=== PATIENT | male | born 1990 | race Caucasian/White ===

== ENCOUNTER 2021-01-30 11:20 | Observation (INO) | payer BC, SELFPAY ==
[2021-01-30 11:34] VITALS: BP 133/87; PULSE 68; RESP 18; TEMP 36.5; O2SAT 97; BMI 21.7
--- NOTE | 2021-01-30 11:34 | PC.NURSE ---
Pt arrived to the floor at this time.
[2021-01-30 12:31] LABS: Chloride 91 mmol/L (98-107); Sodium 128 mmol/L (136-145)
[2021-01-30 12:32] LABS: Potassium 4.5 mmoL/L (3.5-5.1)
[2021-01-30 12:34] LABS: Alanine Aminotransferase 48 U/L (12-78); Alkaline Phosphatase 110 U/L (38-126); Anion Gap 17.5 mEq/L (5-15); Aspartate Amino Transferase 44 U/L (17-59); Bilirubin,Total 0.8 mg/dl (0.2-1.3); Blood Urea Nitrogen 28 mg/dl (9-20); Carbon Dioxide 24 mmol/L (22.0-30.0); Creatinine Clearance Estimated 138 mL/min (50-200); Estimated Glomerular Filt Rate 99 ml/min (>60); GFR (African American) 120 ML/MIN (>60); Phosphorous 4.1 mg/dl (2.5-4.5)
[2021-01-30 12:35] LABS: Albumin Level 4.7 g/dl (3.5-5.0); Albumin/Globulin Ratio 1.6 (1.1-1.8); Calcium 9.8 mg/dl (8.4-10.2); Globulin 2.9 g/dL (1.3-3.2); Total Protein,Serum 7.6 g/dl (6.3-8.2)
[2021-01-30 12:39] LABS: Glucose 622 mg/dl (74-100)
[2021-01-30 12:55] LABS: Acetone, Serum (Rapid) Small (None Detect)
--- NOTE | 2021-01-30 12:58 | HMH.PHAINT ---
MEDICATION RECONCILIATION COMPLETED ON PATIENT USING EXTERNAL FILL HISTORY FROM PHARMACY. -MEHRDAD REMY, [place]
--- NOTE | 2021-01-30 12:59 | P.CONPHA_ITS ---
[facility] Pharmacy VTE Monitoring - Patient Demographics Admission date: 01/30/21 Report Date: 01/30/21 Time: 12:59 Allergies/Adverse Reactions: Patient Allergies No Known Allergies Allergy (Verified 01/30/21 11:45) Height: 1.93 m Weight: 81.193 kg - VTE Risk Labs: VTE Related Lab Results BUN 28 mg/dl (9-20) H 01/30/21 11:50 Creatinine 0.90 mg/dl (0.66-1.25) 01/30/21 11:50 Estimated Creat Clear 138 mL/min (50-200) 01/30/21 11:50 - Prophylaxis VTE Prophylaxis Ordered?: Yes Types of VTE Prophylaxis: TEDS Knee High Location of Applied Device: Bilateral Lower Extremeties
[2021-01-30 13:07] LABS: Thyroid Stimulating Hormone 5.56 uIU/mL (0.465-4.68)
[2021-01-30 13:37] LABS: Hemoglobin A1C > 14.0 % (4.0-6.0)
--- NOTE | 2021-01-30 14:06 | HMH.ACPN2 ---
Internal Medicine - PN: Subj *Date: 01/30/21 *Time: 14:06 Interval history: Saw patient in the office this morning. He had complaints of weight loss, polyuria and polydipsia. Blood sugar and A1c readings were too high to read in the office. He had 2+ ketones in his urine. Exam Vital signs and Labs for Last 24 Hours: Temp Pulse Resp BP Pulse Ox 97.7 F 68 18 133/87 97 01/30/21 11:34 01/30/21 11:34 01/30/21 11:34 01/30/21 11:34 01/30/21 11:34 Laboratory Results - last 24 hr 01/30/21 11:50: Sodium 128 L, Potassium 4.5, Chloride 91 L, Carbon Dioxide 24, Anion Gap 17.5 H, BUN 28 H, Creatinine 0.90, Estimated Creat Clear 138, Estimated GFR 99, Est GFR ( Amer) 120, Glucose 622 H*, Calcium 9.8, Phosphorus 4.1, Magnesium 2.0, Total Bilirubin 0.8, AST 44, ALT 48, Alkaline Phosphatase 110, Total Protein 7.6, Albumin 4.7, Globulin 2.9, Albumin/Globulin Ratio 1.6, TSH 5.56 H 01/30/21 11:50: Hemoglobin A1c > 14.0 H 01/30/21 11:50: Acetone Level Small I & O for Last 24 hours: Intake & Output 01/27/21 01/28/21 01/29/21 01/30/21 23:59 23:59 23:59 23:59 Intake Total 360 / 360 Balance 360 / 360 Weight 179 lb - Constitutional no acute distress - *Routine HEENT Exam Head: Present: normocephalic Eye: Present: EOMI, PERRL ENT: Present: mucous membranes moist - *Routine Neck Exam Present: supple. Absent: lymphadenopathy - *Routine Respiratory Exam Present: CTA bilaterally - *Routine Cardiovascular Exam Present: RRR - *Routine Abdominal Exam Present: soft, normoactive bowel sounds. Absent: tenderness - *Routine Extremities Exam Absent: cyanosis, clubbing, edema - *Routine Skin Exam Present: warm. Absent: rash - *Routine Neurological Exam Present: alert, oriented X3 Assessment and Plan (1) Hyperglycemia Status: Acute Category: Medical Code(s): R73.9 - Hyperglycemia, unspecified (2) Polydipsia Status: Acute Category: Medical Code(s): R63.1 - Polydipsia (3) Polyuria Status: Acute Category: Medical Code(s): R35.8 - Other polyuria (4) Weight loss Status: Acute Category: Medical Code(s): R63.4 - Abnormal weight loss - Assessment and plan all Dx Assessment and Plan for all problems:: Patient admitted with newly diagnosed diabetes. Will start IVF and insulin and await testing to determine if he is type 1 or 2. See orders, H&P to follow.
[2021-01-30 14:52] LABS: POC Glucose,Bedside 379 (70-110)
[2021-01-30 15:14] VITALS: BP 142/71; PULSE 73; RESP 19; TEMP 37.1; O2SAT 98
--- NOTE | 2021-01-30 16:33 | HMH.HP ---
*Admission Date: 01/30/21 <Neli Desai 01/30/21 16:51> *Chief complaint: Weight loss with extreme thirst and frequent urination <Neli Desai 01/30/21 16:51> *History of present illness: Mr. Sherwood is a 30-year-old white male with a history of celiac disease who presented to the office of [facility] this morning complaining of weight loss, polyuria and polydipsia. Blood sugars and A1c were too high to be read in the office. He was noted to have 2+ ketones in his urine. Thus he was admitted to [facility] with a new diagnosis of diabetes. After admission to the hospital A1c was noted to be >14+ with a blood sugar of 622. Sodium was low at 128 potassium was 4.5. He had a small level of acetone in his blood. He was started on fluids for dehydration and was to be given insulin as ordered. With this visit at [facility] patient feels extremely tired. He just wants to sleep. His thirst is somewhat better since being started on the IV fluids. He denies chest pain and shortness of breath. He denies nausea. <Neli Desai 01/30/21 16:51> [facility] History Medical History: Reports:: Gastroesophageal Reflux Disease(GERD) <Neli Desai 01/30/21 16:51> *Have you ever received a pneumonia vaccine?: No <Neli Desai 01/30/21 16:51> *Have you received a flu vaccine this season?: No <Neli Desai 01/30/21 16:51> Other Medical History: Reports: Sinus Problems <Neli Desai 01/30/21 16:51> Other Surgeries: Yes: No Previous Surgery <eNli Desai 01/30/21 16:51> - *Social History Last grade of school completed: High school graduate <Neli Desai 01/30/21 16:51> Smoking Status: Never smoker <Neli Desai 01/30/21 16:51> Alcohol Intake: never <Neli Desai 01/30/21 16:51> *Occupational Status:: employed <Neli Desai 01/30/21 16:51> Housing: house <Neli Desai 01/30/21 16:51> Household Members: family <Neli Desai 01/30/21 16:51> *Travel in the last 8 weeks: None <Neli Desai 01/30/21 16:51> Family Hx:: Cancer, Coronary Artery Disease, Diabetes, Stroke, Substance abuse, Alcoholism, Mental illness <Neli Desai 01/30/21 16:51> Review of Systems - Constitutional Reports fatigue, Reports lack of energy, Reports weight loss, Denies fever(s) <Neli Desai 01/30/21 16:51> - Eyes Reports change in vision <Neli Desai 01/30/21 16:51> - ENT Reports dry mouth, Reports nasal obstruction, Denies ear pain, Denies sore throat <Neli Desai 01/30/21 16:51> - *Cardiovascular Denies chest pain, Denies shortness of breath, Denies leg swelling, Denies rapid, pounding, or irregular heartbeat <Neli Desai 01/30/21 16:51> - *Respiratory Denies chest congestion, Denies cough, Denies shortness of breath <Neli Desai 01/30/21 16:51> - *Gastrointestinal Reports constipation, Reports heartburn, Denies abdominal pain, Denies belching, Denies difficulty swallowing, Denies nausea, Denies vomiting <Neli Desai 01/30/21 16:51> - *Genitourinary Reports urinary frequency <Neli Desai 01/30/21 16:51> - *Musculoskeletal Denies abnormal walking, Denies joint pain <Shannan Desaihy 01/30/21 16:51> - *Neurologic Denies abnormal walking, Denies abnormal speech, Denies frequent falls, Denies seizure-like activity <Neli Desai 01/30/21 16:51> Meds Home Medications Medication Instructions Recorded Confirmed Type Megestrol Acetate 5 ml PO DAILY 01/30/21 01/30/21 History <Aniket Lamas 01/31/21 07:48> Allergies Allergy/AdvReac Type Severity Reaction Status Date / Time No Known Allergies Allergy Verified 01/30/21 11:45 <Aniket Lamas 01/31/21 07:48> Exam Vital signs and Labs for Last 24 Hours: Temp Pulse Resp BP Pulse Ox 98.2 F 58 L 16 138/81 97 01/31/21 03:31 01/31/21 03:31 01/31/21 03:31 01/31/21 03:31 01/31/21 03:31 Laboratory Results - last 24 hr 01/30/21 11:50: Sodium 128 L, Potassium 4.5, Chl
[2021-01-30 17:18] LABS: POC Glucose,Bedside 274 (70-110)
[2021-01-30 19:41] VITALS: BP 126/68; PULSE 74; RESP 16; TEMP 36.9; O2SAT 94
[2021-01-30 22:32] LABS: POC Glucose,Bedside 237 (70-110)
[2021-01-31 03:31] VITALS: BP 138/81; PULSE 58; RESP 16; TEMP 36.8; O2SAT 97
--- NOTE | 2021-01-31 04:03 | PC.NURSE ---
Pt has slept at intervals this shift. No complaints stated. Diabetes education provided to pt. Pt demonstrated well. He checked his own glucose and gave his own insulin, humalog under this nurses supervision. Medication administered per nov. VSS. Lungs are CTA. BS active. No other concerns. Will continue to monitor.
[2021-01-31 05:05] VITALS: BMI 22.4
[2021-01-31 06:06] LABS: POC Glucose,Bedside 247 (70-110)
[2021-01-31 06:57] LABS: Basophils # 0.1 K/mm3 (0-0.2); Basophils % 0.5 % (0.1-2.0); Eosinophils # 0.1 K/mm3 (0.0-0.4); Eosinophils % 1.6 % (0.1-12.0); Hematocrit 40.4 % (42.0-52.0); Hemoglobin 14.6 g/dL (14.1-18.0); Lymphocytes # 3.2 K/mm3 (0.7-4.5); Lymphocytes % 37.7 % (10-50); Mean Corpuscular HGB Conc 36.1 g/dL (31.8-35.4); Mean Corpuscular Hemoglobin 28.6 pg (27.0-31.2); Mean Corpuscular Volume 79.3 fl (80-94); Mean Platelet Volume 8.2 fl (7.4-10.4); Monocytes # 0.5 K/mm3 (0.1-1.0); Monocytes % 5.6 % (1.7-9.3); Neutrophils # 4.6 K/mm3 (1.8-7.8); Neutrophils % 54.6 % (37.0-80.0); Platelet Count 216 K/mm3 (142-424); Red Blood Count 5.09 M/mm3 (4.60-6.20); Red Cell Distribution Width 13.3 % (11.5-17.5); White Blood Count 8.5 K/mm3 (4.8-10.8)
[2021-01-31 07:11] LABS: Acetone, Serum (Rapid) None Detected (None Detect); Anion Gap 8.5 mEq/L (5-15); Blood Urea Nitrogen 18 mg/dl (9-20); Carbon Dioxide 24 mmol/L (22.0-30.0); Chloride 105 mmol/L (98-107); Creatinine Clearance Estimated 182 mL/min (50-200); Estimated Glomerular Filt Rate 132 ml/min (>60); GFR (African American) 160 ML/MIN (>60); Glucose 259 mg/dl (74-100); Potassium 3.5 mmoL/L (3.5-5.1); Sodium 134 mmol/L (136-145)
[2021-01-31 07:51] LABS: Calcium 7.9 mg/dl (8.4-10.2)
[2021-01-31 08:00] VITALS: BP 131/75; PULSE 73; RESP 18; TEMP 36.8; O2SAT 99
--- NOTE | 2021-01-31 08:11 | HMH.ACPN2 ---
<Rose Cerna - Last Filed: 01/31/21 08:11> Internal Medicine - PN: Subj *Date: 01/31/21 *Time: 08:11 Interval history: Patient states he feels much better today. He slept good for the first time in weeks. He no longer has a feeling of excessive thirst. His glucose has improved. He denies any pain. Exam Vital signs and Labs for Last 24 Hours: Temp Pulse Resp BP Pulse Ox 98.3 F 73 18 131/75 99 01/31/21 08:00 01/31/21 08:00 01/31/21 08:00 01/31/21 08:00 01/31/21 08:00 Laboratory Results - last 24 hr 01/30/21 11:50: Sodium 128 L, Potassium 4.5, Chloride 91 L, Carbon Dioxide 24, Anion Gap 17.5 H, BUN 28 H, Creatinine 0.90, Estimated Creat Clear 138, Estimated GFR 99, Est GFR ( Amer) 120, Glucose 622 H*, Calcium 9.8, Phosphorus 4.1, Magnesium 2.0, Total Bilirubin 0.8, AST 44, ALT 48, Alkaline Phosphatase 110, Total Protein 7.6, Albumin 4.7, Globulin 2.9, Albumin/Globulin Ratio 1.6, TSH 5.56 H 01/30/21 11:50: Hemoglobin A1c > 14.0 H 01/30/21 11:50: Acetone Level Small 01/30/21 14:44: POC Glucose 379 H* 01/30/21 16:58: POC Glucose 274 H 01/30/21 22:14: POC Glucose 237 H 01/31/21 05:56: POC Glucose 247 H 01/31/21 06:40: WBC 8.5, RBC 5.09, Hgb 14.6, Hct 40.4 L, MCV 79.3 L, MCH 28.6, MCHC 36.1 H, RDW 13.3, Plt Count 216, MPV 8.2, Neut % (Auto) 54.6, Lymph % (Auto) 37.7, Coal % (Auto) 5.6, Eos % (Auto) 1.6, Baso % (Auto) 0.5, Neut # (Auto) 4.6, Lymph # (Auto) 3.2, Coal # (Auto) 0.5, Eos # (Auto) 0.1, Baso # (Auto) 0.1 01/31/21 06:40: Sodium 134 L, Potassium 3.5 D, Chloride 105, Carbon Dioxide 24, Anion Gap 8.5, BUN 18 D, Creatinine 0.70 D, Estimated Creat Clear 182, Estimated GFR 132, Est GFR ( Amer) 160 D, Glucose 259 H D, Calcium 7.9 L D 01/31/21 06:40: Acetone Level None detected I & O for Last 24 hours: Intake & Output 01/28/21 01/29/21 01/30/21 01/31/21 11:59 11:59 11:59 11:59 Intake Total 2348 / 2348 Balance 2348 / 2348 Weight 179 lb 184 lb Microbiology Reports for the Last 24 Hours: Microbiology 01/30/21 11:57 Nasopharyngeal Coronavirus COVID-19 PCR - Final - Constitutional no acute distress - *Routine Respiratory Exam Present: CTA bilaterally - *Routine Cardiovascular Exam Present: RRR - *Routine Abdominal Exam Present: soft, normoactive bowel sounds. Absent: tenderness - *Routine Extremities Exam Absent: cyanosis, clubbing, edema - *Routine Skin Exam Present: warm. Absent: rash - *Routine Neurological Exam Present: alert, oriented X3 Assessment and Plan (1) Hyperglycemia Status: Acute Category: Medical Code(s): R73.9 - Hyperglycemia, unspecified (2) Polydipsia Status: Acute Category: Medical Code(s): R63.1 - Polydipsia (3) Polyuria Status: Acute Category: Medical Code(s): R35.8 - Other polyuria (4) Weight loss Status: Acute Category: Medical Code(s): R63.4 - Abnormal weight loss - Assessment and plan all Dx Assessment and Plan for all problems:: Patient's electrolytes and glucose have improved. Will discuss further care with Dr. Lamas. <Aniket Lamas - Last Filed: 01/31/21 08:31> Internal Medicine - PN: Subj *Date: 01/31/21 *Time: 08:31 Exam Vital signs and Labs for Last 24 Hours: Temp Pulse Resp BP Pulse Ox 98.3 F 73 18 131/75 99 01/31/21 08:00 01/31/21 08:00 01/31/21 08:00 01/31/21 08:00 01/31/21 08:00 Laboratory Results - last 24 hr 01/30/21 11:50: Sodium 128 L, Potassium 4.5, Chloride 91 L, Carbon Dioxide 24, Anion Gap 17.5 H, BUN 28 H, Creatinine 0.90, Estimated Creat Clear 138, Estimated GFR 99, Est GFR ( Amer) 120, Glucose 622 H*, Calcium 9.8, Phosphorus 4.1, Magnesium 2.0, Total Bilirubin 0.8, AST 44, ALT 48, Alkaline Phosphatase 110, Total Protein 7.6, Albumin 4.7, Globulin 2.9, Albumin/Globulin Ratio 1.6, TSH 5.56 H 01/30/21 11:50: Hemoglobin A1c > 14.0 H 01/30/21 11:50: Acetone Level Small 01/30/21 14:44: POC Glucose 379 H* 01/30/21 16:58: POC Glu
--- NOTE | 2021-01-31 14:53 | DIET.NUTRFU ---
Nutritional assessment/consult completed. Pt with new onset DM with A1C>14 and weight loss as well as hx Celiac disease. In depth diet education/counseling provided to pt and on consistent carbohydrate diet, avoidance high glycemic index foods/beverages, and all nutritional considerations for newly diagnosed DM. Pt is discouraged as he has really struggled with his weight since his Celiac dx in 2014 and unsure how he will maintain/regain without large servings carbs he is used to eating. Pt encouraged that a more consistent balanced diet, small frequent meals, getting adequate protein, and moving to more complex rather than simple carbs will improve fullness and help regain muscle/maintain weight. Pt and voiced understanding all recommendations and feel confident in ability to be compliant with diet. Pt encouraged to f/u with me post dc, will continue education t/o stay.
[2021-01-31 15:04] VITALS: BMI 22.2
[2021-01-31 15:09] VITALS: BP 120/59; PULSE 62; RESP 16; TEMP 37.2; O2SAT 98
[2021-01-31 17:07] LABS: POC Glucose,Bedside 194 (70-110)
--- NOTE | 2021-01-31 18:36 | PC.NURSE ---
Pt has had no acute changes since prior assessment. Pt had a nutrition consult this shift, and stated it was extremely informative for himself and his . Pt did request PRN miralax this shift for constipation. Pt reports x1 small, hard BM this shift. PRN docusate offered but pt refused. No other acute changes or complaints at this time. Will continue to monitor.
[2021-01-31 18:52] LABS: POC Glucose,Bedside 326 (70-110)
[2021-01-31 20:00] VITALS: BP 131/69; PULSE 72; RESP 15; TEMP 37.1; O2SAT 97
[2021-01-31 20:35] LABS: POC Glucose,Bedside 235 (70-110)
[2021-02-01 03:20] VITALS: BP 123/61; PULSE 71; RESP 16; TEMP 37.5; O2SAT 97
--- NOTE | 2021-02-01 04:42 | PC.NURSE ---
No acute changes. Pt has slept well this shift. Has checked his own glucose and self administered insulin without difficulty. No complaints of pain or discomfort. Pt states he feels better. Pt is still concerned about his new onset of diabetes and is concerned about medication and diet after he goes home. VSS. Lungs CTA. BS active. No other concerns. Will continue to monitor.
[2021-02-01 04:56] VITALS: BMI 22.1
[2021-02-01 05:55] LABS: POC Glucose,Bedside 238 (70-110)
[2021-02-01 07:28] VITALS: BP 113/57; PULSE 63; RESP 20; TEMP 36.9; O2SAT 97
--- NOTE | 2021-02-01 08:09 | HMH.ACPN2 ---
<Rose Cerna - Last Filed: 02/01/21 08:09> Internal Medicine - PN: Subj *Date: 02/01/21 *Time: 08:09 Interval history: Patient is feeling better this morning. He slept well and his appetite is returning. His glucose is improving. He denies any pain. Exam Vital signs and Labs for Last 24 Hours: Temp Pulse Resp BP Pulse Ox 98.4 F 63 20 113/57 L 97 02/01/21 07:28 02/01/21 07:28 02/01/21 07:28 02/01/21 07:28 02/01/21 07:28 Laboratory Results - last 24 hr 01/31/21 11:41: POC Glucose 326 H* 01/31/21 16:55: POC Glucose 194 H 01/31/21 20:25: POC Glucose 235 H 02/01/21 05:46: POC Glucose 238 H I & O for Last 24 hours: Intake & Output 01/29/21 01/30/21 01/31/21 02/01/21 11:59 11:59 11:59 11:59 Intake Total 2348 / 2348 1200 / 1200 Output Total 0 / 0 Balance 2348 / 2348 1200 / 1200 Weight 179 lb 184 lb 181 lb 9 oz - Constitutional no acute distress - *Routine Respiratory Exam Present: CTA bilaterally - *Routine Cardiovascular Exam Present: RRR - *Routine Abdominal Exam Present: soft, normoactive bowel sounds. Absent: tenderness - *Routine Extremities Exam Absent: cyanosis, clubbing, edema - *Routine Skin Exam Present: warm. Absent: rash - *Routine Neurological Exam Present: alert, oriented X3 Assessment and Plan (1) Hyperglycemia Status: Acute Category: Medical Code(s): R73.9 - Hyperglycemia, unspecified (2) Polydipsia Status: Acute Category: Medical Code(s): R63.1 - Polydipsia (3) Polyuria Status: Acute Category: Medical Code(s): R35.8 - Other polyuria (4) Weight loss Status: Acute Category: Medical Code(s): R63.4 - Abnormal weight loss - Assessment and plan all Dx Assessment and Plan for all problems:: Possible discharge home today on insulin. Will discuss with Dr. Lamas. <Aniket Lamas - Last Filed: 02/01/21 08:57> Internal Medicine - PN: Subj *Date: 02/01/21 *Time: 08:55 Exam Vital signs and Labs for Last 24 Hours: Temp Pulse Resp BP Pulse Ox 98.4 F 63 20 113/57 L 97 02/01/21 07:28 02/01/21 07:28 02/01/21 07:28 02/01/21 07:28 02/01/21 07:28 Laboratory Results - last 24 hr 01/31/21 11:41: POC Glucose 326 H* 01/31/21 16:55: POC Glucose 194 H 01/31/21 20:25: POC Glucose 235 H 02/01/21 05:46: POC Glucose 238 H I & O for Last 24 hours: Intake & Output 01/29/21 01/30/21 01/31/21 02/01/21 23:59 23:59 23:59 23:59 Intake Total 1867 960 / 960 720 / 720 Output Total 0 / 0 Balance 1867 960 / 960 720 / 720 Weight 179 lb 182 lb 15.739 oz 181 lb 9 oz Assessment and Plan (1) Hyperglycemia Status: Acute Category: Medical Code(s): R73.9 - Hyperglycemia, unspecified (2) Polydipsia Status: Acute Category: Medical Code(s): R63.1 - Polydipsia (3) Polyuria Status: Acute Category: Medical Code(s): R35.8 - Other polyuria (4) Weight loss Status: Acute Category: Medical Code(s): R63.4 - Abnormal weight loss (5) Diabetes Status: Acute Category: Medical Code(s): E11.9 - Type 2 diabetes mellitus without complications (6) Dehydration Status: Acute Category: Medical Code(s): E86.0 - Dehydration - Assessment and plan all Dx Assessment and Plan for all problems:: Saw patient, agree with above note. OK for discharge today with basal and bolus insulin. Treating patient as a type 1, c-peptide is still pending. Plan office f/u in 5 days.
--- NOTE | 2021-02-01 10:13 | PC.NURSE ---
1009 Discharge education provided to pt, questions encouraged and answered.
[2021-02-01 12:14] LABS: POC Glucose,Bedside 273 (70-110)
[2021-02-01 13:31] LABS: C-Peptide 1.6 ng/mL (1.1-4.4)
--- NOTE | 2021-02-01 16:53 | HMH.DCSUM ---
General - General Admission date:: 01/30/21 Discharge date: 02/01/21 HPI HPI: Mr. Sherwood is a 30-year-old white male with a history of celiac disease who presented to the office of [facility] this morning complaining of weight loss, polyuria and polydipsia. Blood sugars and A1c were too high to be read in the office. He was noted to have 2+ ketones in his urine. Thus he was admitted to [facility] with a new diagnosis of diabetes. After admission to the hospital A1c was noted to be >14+ with a blood sugar of 622. Sodium was low at 128 potassium was 4.5. He had a small level of acetone in his blood. He was started on fluids for dehydration and was to be given insulin as ordered. With this visit at [facility] patient feels extremely tired. He just wants to sleep. His thirst is somewhat better since being started on the IV fluids. He denies chest pain and shortness of breath. He denies nausea. Hospital Course Hospital Course: The patient was admitted with newly diagnosed diabetes and was started on IV fluids and insulin. By 01/31/2021, he was feeling much better. He had slept well for the first time in weeks and no longer had a feeling of excessive thirst. His glucose had improved. Diabetes education was performed. By 02/01/2021, his glucose continued to improve and his appetite returned. He was stable to be discharged home on basal and bolus insulin. He will be treated as a type I diabetic as his C-peptide is still pending. He would follow-up in the office with Dr. Lamas in 5 days. Objective Vital signs: Temp Pulse Resp BP Pulse Ox 98.4 F 63 20 113/57 L 97 02/01/21 07:28 02/01/21 07:28 02/01/21 07:28 02/01/21 07:28 02/01/21 07:28 Narrative: - Constitutional no acute distress Comments: Awakened from sleep for exam. He appears not to feel well. - *Routine HEENT Exam Head: Present: normocephalic, atraumatic Eye: Absent: conjunctival icterus, scleral injection ENT: Present: mucous membranes dry, oropharynx clear, dentition normal - *Routine Neck Exam Present: supple. Absent: carotid bruit, lymphadenopathy, thyromegaly - *Routine Respiratory Exam Present: CTA bilaterally (Anteriorly and posteriorly) - *Routine Cardiovascular Exam Present: RRR (70 to 80 bpm) - *Routine Abdominal Exam Present: soft, normoactive bowel sounds. Absent: tenderness, distended - *Routine Rectal Exam Rectal:: deferred - *Routine Genitalia Exam Genitalia:: deferred - *Routine Extremities Exam Present: full ROM, pulses intact. Absent: edema, calf tenderness - *Routine Skin Exam Present: dry (Skin appears dry.), rash (Under bilateral lower arms and on knees.) - *Routine Neurological Exam Present: alert, oriented X3 Results Labs on day of discharge: Labs from last 24 hours 02/01/21 02/01/21 01/31/21 11:07 05:46 20:25 POC Glucose 273 H 238 H 235 H C-Peptide 01/31/21 01/31/21 01/30/21 16:55 11:41 11:50 POC Glucose 194 H 326 H* C-Peptide 1.6 DS: Diagnosis - Discharge Diagnosis (1) Hyperglycemia Status: Acute (2) Polydipsia Status: Acute (3) Polyuria Status: Acute (4) Weight loss Status: Acute (5) Diabetes Status: Acute (6) Dehydration Status: Acute Discharge Plan - Patient Discharge Instructions ACTIVITY: Continue current activity DIET: continue same diet Additional Instructions: Medium intensity sliding scale for Humalog Patient Instructions: Type 1 Diabetes, DI for Diabetes Type 1 -- Adult, How to Use an Insulin Pen - Follow up Plan Follow up with: Aniket Lamas MD [Staff Physician] - 02/06/21 11:30 am Disposition: Home, Self-Care Condition at discharge:: Improved Home Medications: Home Medications Medication Instructions Recorded Confirmed Type Insulin Glargine,Hum.rec.anlog 20 unit SQ DAILY insuln.pen 02/01/21 Rx [Lantus Solos
== END 2021-02-01 11:20 | disposition home or self-care (01) ==
PROVIDERS: Admitting Provider Family Medicine; Visit Provider Family Medicine
DX: E11.65 Type 2 diabetes mellitus with hyperglycemia (principal); E86.0 Dehydration; K90.0 Celiac disease; K21.9 Gastro-esophageal reflux disease without esophagitis
CPT/HCPCS: 36415; 80048; 80053; 82009; 82962; 83036; 83735; 84100; 84443; 84681; 85025; G0378; U0003

== ENCOUNTER 2021-11-27 11:01 | Emergency (ER) | payer BC, SELFPAY ==
[2021-11-27 11:57] VITALS: BP 153/89; PULSE 86; RESP 16; TEMP 36.7; O2SAT 99; BMI 24.9
--- NOTE | 2021-11-27 12:05 | HMH.EDUTC ---
[facility] [place] Disposition Clinical Impression: Strep throat Disposition: Home, Self-Care Condition on Discharge: Good Instructions: DI for Strep Throat, Strep Throat Additional Instructions: Drink plenty of fluids. Take tylenol or ibuprofen for pain or fever. Take the medications as directed. Follow up with your regular doctor. GO TO THE ER FOR ANY WORSENING SYMPTOMS Throw your tooth brush away and get a new one. Prescriptions: Brompheniramine/Pseudoephed/Dm [Bromfed Dm Cough Syrup] 5 ml PO Q6HP PRN #240 ml PRN Reason: Cough Transmission Status: Pending to ePAR # Amoxicillin/Potassium Clav [Amox-Clav 875-125 mg Tablet] 1 tab PO BID #20 tab Transmission Status: Pending to ePAR # Referrals: Aniket Lamas MD [Primary Care Provider] - Forms: Work/School Release Time of Disposition: 12:34 Medical Decision Making - Medical Records Medical records reviewed: No: I reviewed the patient's medical records. - Dean Inquiry Pt receiving controlled substance: No Vital Signs: 11/27/21 11:57 Temperature 98.1 F Temperature Source Oral Pulse Rate [Left] 86 Respiratory Rate 16 Blood Pressure [Right Arm] 153/89 H Blood Pressure Mean [Right Arm] 110 02 Sat by Pulse Oximetry 99 - Lab Data Lab results reviewed: Yes: I reviewed the patient's lab results. Lab Results 11/27/21 12:04: Strep Scn Rapid Clinic Positive A [facility] [place] HPI - General Stated complaint: sore throat, congestion Time Seen by Provider: 11/27/21 12:05 Mode of Arrival: Ambulatory Source of Information: Patient Limitations: No Limitations Description of Symptoms (Recalled from Triage Doc. by RN): pt c/o congestion, sore throat and a PHAM. HEENT Symptoms (Recalled from RN notes): Yes Resp Symptoms (Recalled from RN notes): No Skin Symptoms (Recalled from RN notes): No MS Symptoms (Recalled from RN notes): No Functional Status (Recalled from RN notes): wnl - History of Present Illness Provider Complaint: He c/o sore throat, chills, low grade fever, body aches and generally feeling bad for the past 2 days. He had to leave work today because he felt so bad. He has been fully vaccinated against covid-19 and he has had covid about 6 months ago. - Related Data Previous Rx's Medication Instructions Recorded Insulin Glargine,Hum.rec.anlog 20 unit SQ DAILY insuln.pen 02/01/21 [Lantus Solostar 100 Units/mL 3mL flexpen] Insulin Lispro [Humalog Kwikpen See Protocol SQ ACHS #5 insuln.pen 02/01/21 U-100] Pen Needle, Diabetic [Pen Needle] 1 each MC 5XDAY #100 dis.needle 02/01/21 Amoxicillin/Potassium Clav 1 tab PO BID #20 tab 11/27/21 [Amox-Clav 875-125 mg Tablet] Brompheniramine/Pseudoephed/Dm 5 ml PO Q6HP PRN #240 ml 11/27/21 [Bromfed Dm Cough Syrup] Allergies Allergy/AdvReac Type Severity Reaction Status Date / Time No Known Allergies Allergy Verified 01/30/21 11:45 - Worker's Comp Is this a Worker's Comp case?: No [facility] History - Hepatitis A Screen Drug use history?: No High risk sexual behaviors?: No History of sexually transmitted infection?: No Currently employed?: No Childcare worker?: No Do you have indoor plumbing?: Yes Do you have electricity?: Yes Attestation statement:: This patient has been screened for Hepatitis A risk factors. I have reviewed the patient's past medical history: Yes Medical History: Reports:: Gastroesophageal Reflux Disease(GERD) Other Medical History: Reports: Sinus Problems Other Surgeries: Yes: No Previous Surgery - Social History Smoking Status: Never smoker Alcohol Intake: never Occupational Status: employed Housing: house Household Members: family Family Hx:: Cancer, Coronary Artery Disease, Diabetes, Stroke, Substance abuse, Alcoholism, Mental illness ROS Obtained: Yes All systems reviewed & no additional complaints - Constitutional Constitutional: Reports as per HPI - Eyes Eyes: Denies eye discharge - EN
[2021-11-27 12:17] LABS: UTC Strep Screen (Rapid) Positive (Negative)
[2021-11-27 12:39] VITALS: BP 153/89; PULSE 86; RESP 16; TEMP 36.7
== END 2021-11-27 12:40 | disposition home or self-care (01) ==
PROVIDERS: Emergency Provider Nurse Practitioner Family; PCP Family Medicine
DX: J02.0 Streptococcal pharyngitis (principal); B95.0 Streptococcus, group A, as the cause of diseases classified elsewhere; R51.9 Headache, unspecified; K21.9 Gastro-esophageal reflux disease without esophagitis; Z86.16 Personal history of COVID-19; Z79.4 Long term (current) use of insulin; Z82.49 Family history of ischemic heart disease and other diseases of the circulatory system; Z83.3 Family history of diabetes mellitus; Z80.9 Family history of malignant neoplasm, unspecified; Z81.1 Family history of alcohol abuse and dependence; Z81.3 Family history of other psychoactive substance abuse and dependence; Z81.8 Family history of other mental and behavioral disorders
CPT/HCPCS: 87880; 99213; G0463

== ENCOUNTER 2022-05-25 08:13 | Emergency (ER) | payer BC, SELFPAY ==
--- NOTE | 2022-05-25 08:21 | EXP.UTC ---
Discharge Plan Disposition Patient Disposition: Home, Self-Care Condition: Good Prescriptions Prescriptions: New sulfamethoxazole-trimethoprim [Bactrim DS] 800-160 mg Tablet 1 tab PO BID Qty: 20 0RF cephalexin [cephalexin] 500 mg capsule 500 mg PO Q6H 10 Days Qty: 40 0RF mupirocin 2 % ointment 1 applic topical TID 7 Days Qty: 1 0RF No Action insulin glargine 100 UNIT/ML insulin pen 20 unit SQ DAILY 0RF insulin lispro 100 UNIT/ML insulin pen See Protocol SQ ACHS Qty: 5 0RF Protocol: Insulin Corrective Med-Dose Regimen Condition: Fingerstick Blood Glucose Dose/Route: Insulin Units Condition: 151-200 mg/dl Dose/Route: 2 units/SQ Condition: 201-250 mg/dl Dose/Route: 5 units/SQ Condition: 251-300 mg/dl Dose/Route: 8 units/SQ Condition: 301-350 mg/dl Dose/Route: 10 units/SQ Condition: 351-400 mg/dl Dose/Route: 12 units/SQ Condition: 401-450 mg/dl Dose/Route: 15 units/SQ Condition: > 450 mg/dl Dose/Route: CALL MD Protocol Text: Medium Intensity Sliding Scale Insulin (DME) pen needle, diabetic 1 EACH needle 1 each MC 5XDAY Qty: 100 0RF Referrals Follow up/Referrals: Aniket Lamas MD [Primary Care Provider] - See instructions Activity Restrictions/Add. Instructions Additional Instructions/Restrictions: Keep the affected area clean and dry. Follow up with your regular doctor. Take the antibiotics as directed and apply the topical antibiotics as directed. Apply warm wet compresses to the affected area three or four times per day. GO TO THE ER FOR ANY WORSENING SYMPTOMS Make sure you follow up with your primary care physician within 2 to 3 days. They may want to adjust the antibiotics that you are being started on today. Clinical Impressions Clinical Impression: Cellulitis of arm, right Stand Alone Forms Stand Alone Forms: Work/School Release Instructions Patient Instructions: Cellulitis Discharge ED Provider: Alex Isbell [facility] General Stated complaint: infection rt arm Time Seen by Provider: 05/25/22 08:22 History of Present Illness Provider Complaint: He states that he is a type 1 diabetic. He uses a continious glucose monitor. He has been having redness and slight swelling at the insertion site on his right upper arm for the past 2 days. He switched the site as soon as he noticed this, but he is here to be treated for the infection. He denies any fever or chills. He denies any drainage from the site. Related Data Previous Rx's Medication Instructions Recorded insulin glargine 100 unit/mL (3 20 unit (0.2 mL) SQ DAILY 02/01/21 mL) subcutaneous pen insulin lispro 100 unit/mL See Protocol SQ ACHS ##5 02/01/21 subcutaneous pen pen needle, diabetic 32 gauge x ##100 02/01/2111/28 cephalexin 500 mg capsule 500 mg PO Q6H 10 days #40 caps 05/25/22 mupirocin 2 % topical ointment 1 applic topical TID 7 days #1 g 05/25/22 sulfamethoxazole 800 1 tab PO BID #20 tabs 05/25/22 mg-trimethoprim 160 mg tablet (Bactrim DS) Allergies Allergy/AdvReac Type Severity Reaction Status Date / Time No Known Allergies Allergy Verified 05/25/22 08:29 [facility] Social History Smoking Status: Never smoker alcohol intake: never current occupational status: employed Travel in the last 8 weeks: None household members: family housing: house ROS Obtained: Yes All systems reviewed & no additional complaints except as documented Constitutional Constitutional: Reports system reviewed and no additional complaints, except as documented, Denies chills and Denies fever(s) Eyes Eyes: Denies eye discharge ENT Ears, Nose, Mouth, and Throat: Denies dysphagia, Denies sore throat and Denies throat swelling Cardiovascular Cardiovascular: Denies chest pain and Denies dyspnea Respiratory Respiratory: Denies chest congestion, Denies cough and Denies dyspnea Gastrointestin
[2022-05-25 08:25] VITALS: BP 135/82; PULSE 78; RESP 17; TEMP 36.6; O2SAT 98; BMI 23.7
[2022-05-25 08:43] VITALS: BP 135/82; PULSE 78; RESP 17; TEMP 36.6
== END 2022-05-25 08:50 | disposition home or self-care (01) ==
PROVIDERS: Emergency Provider Nurse Practitioner Family; PCP Family Medicine
DX: E10.628 Type 1 diabetes mellitus with other skin complications (principal); L03.113 Cellulitis of right upper limb
CPT/HCPCS: 96372; 99212; G0463; J0696

== ENCOUNTER → 2023-03-24 16:09 | Outpatient (CLI) | payer BC, SELFPAY ==
--- NOTE | 2023-03-24 16:14 | MR_ITS ---
PROCEDURE INFORMATION: Exam: MR Right Upper Extremity Joint Without Contrast; Elbow Exam date and time: 03/24/2023 4:13 PM Age: 33 years old Clinical indication: Pain; Elbow; Right; Additional info: Right elbow pain. Previous fracture in elbow. Unable to fully extend arm. Popping in elbow when extending. Posterior elbow pain. TECHNIQUE: Imaging protocol: Magnetic resonance imaging of the right upper extremity without contrast. Exam focused on the elbow. COMPARISON: No relevant prior studies available. FINDINGS: Bones/joints: Abnormal morphology of the radial head, consistent with fracture, with a cortical defect at the articulating surface. Mild osseous cystic/edematous change is identified within the bone marrow. Marrow edema involves the adjacent distal humerus/capitellum, with cortical irregularity, consistent with osteochondral injury or arthropathy. A curvilinear T2 hyperintense nondisplaced fracture is also suggested in this region. Small elbow effusions. There is a small cystic collection of fluid between the proximal radius and ulna measuring 8-9 mm in diameter. There is mild extension of trochlear-olecranon effusion into the adjacent soft tissues. No dislocation of the elbow. Spurring of the trochlear-olecranon joint. Spurring of the coronary process is visualized. Minimal marrow edema within the olecranon process. This is likely degenerative or post-traumatic. Ulnar (medial) collateral ligament: No visual tear. Radial collateral ligament of the elbow: Heterogeneous signal intensity of the radial collateral ligament, with suggested partial tear. Annular ligament of the radius: A focal decrease in caliber is identified of the annular ligament, suggestive of partial tear. Tendon of the biceps brachii: Unremarkable. No tear. Tendon of the brachialis: Unremarkable. No tear. Triceps tendon: Unremarkable. No tear. Common flexor tendon: No visualized tear. Common extensor tendon: Mild increased signal intensity deep to the proximal extensor tendon with heterogeneous signal intensity of this tendon proximally. These findings are consistent with partial tear. Soft tissues: Mild soft tissue swelling posterior to the olecranon process. IMPRESSION: 1. Abnormal morphology of the radial head, consistent with fracture, with a cortical defect at the articulating surface. Mild osseous cystic/edematous change is identified within the bone marrow. Marrow edema involves the adjacent distal humerus/capitellum, with cortical irregularity, consistent with osteochondral injury or arthropathy. A curvilinear T2 hyperintense nondisplaced fracture is also suggested in this region. Clinical correlation and correlation with prior studies recommended. 2. Minimal marrow edema within the olecranon. This is likely degenerative or post-traumatic. 3. Small elbow effusions. 4. Mild soft tissue swelling posterior to the olecranon process. 5. A focal decrease in caliber is identified of the annular ligament, suggestive of partial tear. 6. Partial tear of the proximal common extensor tendon. 7. Suggested partial tear of the radial collateral ligament. 8. Degenerative changes.
== END ==
LOC: RAD 16:10
PROVIDERS: PCP Family Medicine; Visit Provider Orthopaedic Surgery Adult Reconstructive Orthopaedic Surgery
DX: M25.521 Pain in right elbow (principal)
CPT/HCPCS: 73221

== ENCOUNTER → 2023-03-26 12:57 | Outpatient (CLI) | payer BC, SELFPAY ==
[2023-03-26 12:32] LABS: Basophils % 0.7 % (0.1-2.0); Eosinophils # 0.2 K/mm3 (0.0-0.4); Eosinophils % 3.2 % (0.1-12.0); Hematocrit 44.3 % (42.0-52.0); Hemoglobin 14.5 g/dL (14.1-18.0); Lymphocytes # 1.7 K/mm3 (0.7-4.5); Lymphocytes % 36.1 % (10-50); Mean Corpuscular HGB Conc 32.7 g/dL (31.8-35.4); Mean Corpuscular Hemoglobin 27.9 pg (27.0-31.2); Mean Corpuscular Volume 85.2 fl (80-94); Mean Platelet Volume 8.1 fl (7.4-10.4); Monocytes # 0.4 K/mm3 (0.1-1.0); Monocytes % 9.6 % (1.7-9.3); Neutrophils # 2.3 K/mm3 (1.8-7.8); Neutrophils % 50.5 % (37.0-80.0); Platelet Count 249 K/mm3 (142-424); White Blood Count 4.6 K/mm3 (4.8-10.8)
[2023-03-26 12:44] LABS: Chloride 105 mmol/L (98-107)
[2023-03-26 12:45] LABS: Potassium 4.4 mmoL/L (3.5-5.1); Sodium 139 mmol/L (136-145)
[2023-03-26 12:47] LABS: Alanine Aminotransferase 29 U/L (12-78); Alkaline Phosphatase 68 U/L (38-126); Anion Gap 13.4 mEq/L (5-15); Aspartate Amino Transferase 39 U/L (17-59); Bilirubin,Total 0.4 mg/dl (0.2-1.3); Blood Urea Nitrogen 16 mg/dl (9-20); Carbon Dioxide 25 mmol/L (22.0-30.0); Cholesterol 116 mg/dl (140-200); Estimated Glomerular Filt Rate 111 ml/min (>60); GFR (African American) 135 ML/MIN (>60); Triglycerides 129 mg/dl (30-150); VLDL Cholesterol 26 mg/dL (0-40)
[2023-03-26 12:48] LABS: Albumin/Globulin Ratio 1.6 (1.1-1.8); Calcium 8.7 mg/dl (8.4-10.2); Chol/HDL Ratio 3.9 (1-3.5); Globulin 2.5 g/dL (1.3-3.2); Glucose 152 mg/dl (74-100); HDL Cholesterol 30 mg/dl (40-60); Total Protein,Serum 6.5 g/dl (6.3-8.2)
[2023-03-26 13:06] LABS: Direct LDL Cholesterol 60.83 mg/dL (100-129); T4 (Thyroxine) 8.6 ug/dl (5.53-11.0)
[2023-03-26 13:09] LABS: 25-OH Vitamin D, Total 46.6 ng/mL (30-100)
[2023-03-26 13:19] LABS: Thyroid Stimulating Hormone 2.18 uIU/mL (0.465-4.68)
[2023-03-26 19:03] LABS: Vitamin B12 > 1000 pg/mL (239-931)
[2023-03-27 08:22] LABS: Thyroid Peroxidase Antibodies 238 IU/mL (0-34); Triiodothyronine (T3) Total 119 ng/dL (71-180)
[2023-03-28 12:05] LABS: Testosterone,Total 177 ng/dL (264-916)
[2023-03-29 10:19] LABS: Thyroid Stimulating Immunoglob <0.10 IU/L (0.00-0.55)
== END ==
PROVIDERS: PCP Physician Assistant; Visit Provider Physician Assistant
DX: R53.83 Other fatigue (principal); E29.1 Testicular hypofunction; E10.9 Type 1 diabetes mellitus without complications; Z79.4 Long term (current) use of insulin
CPT/HCPCS: 80053; 80061; 82306; 82607; 84403; 84436; 84443; 84445; 84480; 85025; 86376

== ENCOUNTER → 2023-04-07 16:02 | Outpatient (CLI) | payer BC, SELFPAY ==
[2023-04-09 12:09] LABS: Testosterone,Total 105 ng/dL (264-916)
== END ==
PROVIDERS: PCP Physician Assistant; Visit Provider Physician Assistant
DX: E29.1 Testicular hypofunction (principal)
CPT/HCPCS: 84403

== ENCOUNTER → 2023-04-21 12:58 | Outpatient (CLI) | payer BC, SELFPAY ==
--- NOTE | 2023-04-21 12:58 | US_ITS ---
FINAL REPORT CLINICAL HISTORY: Thyroid peroxidase antibodies elevated COMPARISON: None FINDINGS: Thyroid ultrasound: The right lobe of the thyroid measures 5.7 x 2.1 x 2.8 cm in size, somewhat enlarged. The overall texture of the right lobe of the thyroid gland is heterogeneous and hypervascular. Because of the overall heterogeneity of the echotexture, specific nodules are difficult to identify. The left lobe of the thyroid gland measures 4.8 x 1.5 x 2.3 cm in size, is also heterogeneous and hypervascular. Because of this overall heterogeneity, once again specific nodules are difficult to identify. The isthmus of the thyroid measures 7 mm in thickness. There are several nodular appearing areas of echogenicity adjacent to both lobes of the thyroid gland, measuring up to 1.7 cm in size. These may represent adjacent lymph nodes, or may be adjacent enlarged parathyroid glands. IMPRESSION: Diffusely abnormal enlarged hypervascular thyroid, most likely secondary to thyroiditis. Several areas of echogenicity immediately adjacent to the thyroid gland measuring up to 1.7 cm in size that may represent small nodes or parathyroid glands. Reviewed, Interpreted and Dictated by Alfonso Agrawal III, MD Transcribed by Sheila Buchanan Authenticated and [facility]
== END ==
PROVIDERS: PCP Physician Assistant; Visit Provider Physician Assistant
DX: R76.8 Other specified abnormal immunological findings in serum (principal)
CPT/HCPCS: 76536

== ENCOUNTER 2023-12-14 23:14 | Emergency (ER) | payer BC, SELFPAY ==
[2023-12-14 23:16] VITALS: BP 131/87; PULSE 69; RESP 18; TEMP 36.6; O2SAT 97; BMI 26.9
--- NOTE | 2023-12-14 23:26 | ED_ITS ---
Discharge Plan Disposition Patient Disposition: Home, Self-Care Prescriptions Prescriptions: No Action fluticasone propionate [Allergy Relief (fluticasone)] 50 mcg/actuation spray,suspension 1 spray intranasal DAILY Qty: 16 2RF Rx Instructions: administer into each nostril (DME) Dexcom G6 Sensor Device See Rx Instructions .ROUTE .MEDSUPPLY Qty: 1 Rx Instructions: As directed (DME) Dexcom G6 Transmitter Device See Rx Instructions .ROUTE .MEDSUPPLY Qty: 1 Rx Instructions: As directed amoxicillin 500 mg capsule 500 mg PO BID Qty: 10 0RF clomiphene citrate [Clomid] 50 mg tablet 50 mg PO DAILY 30 Days Qty: 30 0RF insulin glargine 100 UNIT/ML insulin pen 20 unit SQ DAILY 0RF insulin lispro 100 UNIT/ML insulin pen See Protocol SQ ACHS Qty: 5 0RF Protocol: Insulin Corrective Med-Dose Regimen Condition: Fingerstick Blood Glucose Dose/Route: Insulin Units Condition: 151-200 mg/dl Dose/Route: 2 units/SQ Condition: 201-250 mg/dl Dose/Route: 5 units/SQ Condition: 251-300 mg/dl Dose/Route: 8 units/SQ Condition: 301-350 mg/dl Dose/Route: 10 units/SQ Condition: 351-400 mg/dl Dose/Route: 12 units/SQ Condition: 401-450 mg/dl Dose/Route: 15 units/SQ Condition: > 450 mg/dl Dose/Route: CALL MD Protocol Text: Medium Intensity Sliding Scale Insulin (DME) pen needle, diabetic 1 EACH needle 1 each miscellaneous 5XDAY Qty: 100 0RF Referrals Follow up/Referrals: Yesika Hardwick PA [Primary Care Provider] - See instructions Activity Restrictions/Add. Instructions Additional Instructions/Restrictions: Please follow-up with your primary care provider. Please return to the emergency department if you develop any new or worsening symptoms or become concerned for your health. Clinical Impressions Clinical Impression: Acute viral pharyngitis Discharge ED Provider: Renzo Walters General Adult HPI General Chief complaint: Upper Respiratory Infection Stated complaint: sore throat Time Seen by Provider: 12/14/23 23:23 History of Present Illness HPI narrative: 33-year-old male with history of type 1 diabetes, celiac, hypothyroidism presents with sore throat for the last several days. Reports his looked in his throat today and noticed some white spots. He is traveling to [place] tomorrow and wanted to get checked out before traveling. He reports no fever at home, denies any difficulty breathing, cough, otitis etc. Denies any other complaints. Related Data Home Medications Medication Instructions Recorded Confirmed blood-glucose sensor (Dexcom G6 #1 ea 03/26/23 07/14/23 Sensor device) blood-glucose transmitter (Dexcom #1 ea 03/26/23 07/14/23 G6 Transmitter device) Previous Rx's Medication Instructions Recorded insulin glargine 100 unit/mL (3 20 unit (0.2 mL) SQ DAILY 02/01/21 mL) subcutaneous pen insulin lispro 100 unit/mL See Protocol SQ ACHS ##5 02/01/21 subcutaneous pen pen needle, diabetic 32 gauge x ##100 02/01/21 3/16 clomiphene citrate 50 mg tablet 50 mg PO DAILY 30 days #30 tabs 04/09/23 (Clomid) fluticasone propionate 50 1 spray intranasal DAILY #16 grams 07/14/23 mcg/actuation nasal spray,suspension (Allergy Relief (fluticasone)) amoxicillin 500 mg capsule 500 mg PO BID #10 caps 10/27/23 Allergies Allergy/AdvReac Type Severity Reaction Status Date / Time No Known Allergies Allergy Verified 10/27/23 11:07 [facility] Disclaimer: The information contained in this section may have been updated after the patient was seen, as this information can be updated by other users. Medical History Anti-TPO antibodies present Celiac disease Enlarged thyroid Type 1 diabetes Surgical History H/O vasectomy Family History Other Thyroid disorder Social History Smoking Status: Never smoker alcohol intake: never current occupational status: employed Travel in the last 8 weeks: None household members: family housing: house ROS Obtained: Yes All systems reviewed & no additional complaints except as documented Physical Exam General General appearance: alert and in no apparent distress Head Head exam: atraumatic and normocephalic Eye Eye exam: Present normal appearance, PERRL and EOMI ENT ENT exam: Present normal external ear exam and other (Posterior oropharynx and tonsils erythematous with exudate primarily on the right, no significant tonsillar swelling) Neck Neck exam: Present normal inspection and full ROM Chest Chest inspection: Present normal inspection and symmetric chest wall rise; Absent tenderness Respiratory Respiratory exam: Present normal lung sounds bilaterally; Absent respiratory dis tress Cardiovascular Cardiovascular exam: Present regular rate and normal rhythm Abdominal Exam Abdominal exam: Present soft; Absent distention, tenderness or guarding Extremities Exam Extremities exam: Present normal inspection; Absent edema or joint swelling Back Exam Back exam: Present normal inspection; Absent tenderness Neurological Exam Neurological exam: Present alert and oriented X3; Absent motor sensory deficit Psychiatric Psychiatric exam: Present normal affect and normal mood Skin Skin exam: Present warm, dry and normal color Lymphatic Lymphatic Findings: no adenopathy Medical Decision Making Medical Records Medical records reviewed: Yes I reviewed the patient's medical records. Daen Inquiry Pt receiving controlled substance: No Dean was queried for this patient: No Vital Signs: 12/14/23 23:16 12/14/23 23:54 Temperature 97.8 F 97.8 F Temperature Source Oral Oral Pulse Rate 69 Pulse Rate [Left] 69 Respiratory Rate 18 18 Blood Pressure 131/87 Blood Pressure [Right Arm] 131/87 Blood Pressure Mean [Right Arm] 101 Blood Pressure Source [Right Arm] Automatic Cuff Blood Pressure Position [Right Arm] Sitting 02 Sat by Pulse Oximetry 97 Oxygen Delivery Method Room Air Room Air Lab Data Lab results reviewed: Yes I reviewed the patient's lab results. Lab Results 12/14/23 23:29: Group A Strep Rapid Negative Orders (Tests/Meds): ORDERS Category Date Time Status Rapid Strep Scrn Group A [Strep Scrn Group A (Rapid)] Lab 12/14/23 23:29 Completed Stat Strep Screen Confirmation Stat Micro 12/14/23 23:29 Received Medical Decision Narrative: 33-year-old male presentation complicated by history of type 1 diabetes celiac disease hypothyroidism presents with sore throat for the last several days.. History was obtained interactive discussion with patient, chart review. On arrival, patient is [afebrile, hemodynamically stable, satting appropriately, alert, oriented x4, GCS 15], moving all extremities spontaneously. Full physical exam performed and significant for erythematous posterior oropharynx with exudate Differential includes but is not limited to viral pharyngitis, strep pharyngitis, candidal infection. Workup initiated including rapid strep screen. On re-evaluation, patient [remains afebrile, HD stable.] Laboratory workup independently interpreted by me and significant for negative strep screen. Confirmatory testing sent. Given patient history, exam and workup, patient's presentation most likely represents viral pharyngitis. These findings were communicated to patient. He was discharged in stable condition with instructions regarding symptomatic care.. Procedures Risk/Benefits of Procedure(s) Were Explained: Yes Critical Care Critical Care Time Critical Care Time: No
[2023-12-14 23:47] LABS: Strep Scrn Group A (Rapid) Negative (Negative)
[2023-12-14 23:54] VITALS: BP 131/87; PULSE 69; RESP 18; TEMP 36.6; O2SAT 97
--- NOTE | 2023-12-18 15:43 | PC.NURSE ---
spoke with pt who states that he still has some issues with pain in his throat. ordered penicillin VK 500mg po bid x10 days, called into [facility] per pt request for throat culture results
== END 2023-12-14 23:56 | disposition home or self-care (01) ==
PROVIDERS: Emergency Provider Emergency Medicine; PCP Physician Assistant
DX: J02.9 Acute pharyngitis, unspecified (principal); B34.9 Viral infection, unspecified; E10.9 Type 1 diabetes mellitus without complications; E03.9 Hypothyroidism, unspecified; K90.0 Celiac disease; Z79.4 Long term (current) use of insulin
CPT/HCPCS: 87430; 99283

== ENCOUNTER 2024-04-19 11:07 | Outpatient (CLI) | payer BC, SELFPAY ==
[2024-04-19 18:09] LABS: Coronavirus 19, PCR Not Detected (NotDetected); Influenza A, PCR Not Detected (NotDetected); Influenza B, PCR Not Detected (NotDetected)
== END 2024-04-19 23:59 | disposition home or self-care (01) ==
LOC: LAB.DROPOF 04-20 11:08
PROVIDERS: PCP Student in an Organized Health Care Education/Training Program; Visit Provider Student in an Organized Health Care Education/Training Program
DX: R05.9 Cough, unspecified (principal); J06.9 Acute upper respiratory infection, unspecified
CPT/HCPCS: 87636